=== PATIENT | male | born 1965 | race Caucasian/White ===

== ENCOUNTER → 2017-04-27 10:08 | Outpatient (CLI) | payer MEDICAID ==
[2017-04-27 11:53] LABS: APPEARANCE HAZY (CLEAR); COLOR YELLOW (YELLOW); SPECIFIC GRAVITY 1.025 (1.005-1.020)
[2017-04-27 11:54] LABS: BACTERIA FEW /hpf (NONE SEEN); BILIRUBIN NEGATIVE (NEGATIVE); EPITHELIAL CELLS 0-5 /hpf (0-5); GLUCOSE NEGATIVE (NEGATIVE); KETONE NEGATIVE (NEGATIVE); LEUKOCYTE ESTERASE TRACE (NEGATIVE); MUCUS >1+ /lpf (NONE SEEN); NITRITE NEGATIVE (NEGATIVE); PROTEIN NEGATIVE (NEGATIVE); RED CELLS - URINE 0-5 /hpf (0-5); UROBILINOGEN NORMAL (NORMAL); WHITE CELLS - URINE 0-5 /hpf (0-5)
== END | disposition home or self-care (01) ==
LOC: D.LABREF 10:08
PROVIDERS: Urology
DX: N39.0 Urinary tract infection, site not specified (principal); R31.9 Hematuria, unspecified

== ENCOUNTER → 2017-04-28 13:31 | Outpatient (CLI) | payer MEDICAID | END | disposition home or self-care (01) | LOC: D.CT 13:31 | DX: R31.21 Asymptomatic microscopic hematuria (principal) ==

== ENCOUNTER 2017-06-01 05:32 | Day surgery (SDC) | payer MEDICAID ==
[2017-05-31 14:17] LABS: HEMATOCRIT 41.6 % (42.0-54.0); HEMOGLOBIN 14.3 g/dL (13.5-17.5); MCH 31.6 pg (26.0-34.0); MCHC 34.4 g/dL (31.0-37.0); MEAN PLATELET VOLUME 9.7 fL (7.4-10.4); RBC 4.52 10x6/uL (4.20-6.10); RDW 12.7 % (11.5-14.5); WBC 7.4 10x3/uL (4.8-10.8)
[~2017-06-01] VITALS: Ht 175.3 cm; Wt 95.3 kg
[~2017-06-01 05:32] MED LIST: METOPROLOL TART50 MG PO; PROZAC20 MG PO; ROBAXIN500 MG PO; TRAZODONE HCL50 MG PO
[2017-06-01 07:10] VITALS: BP 109/62; Ht 175.3 cm; Wt 95.3 kg
--- NOTE | 2017-06-01 13:11 | OP ---
PATIENT NAME: MEEK PROTILLO MEDICAL RECORD: [id number] :61 LOCATION:[facility] ADMISSION DATE: SURGEON: JOSEP GAYLE MD DATE OF OPERATION: 06/01/2017 SURGEON: Josep Gayle MD ANESTHESIA: General anesthesia by Dr. Mario. PREOPERATIVE DIAGNOSIS: Microhematuria, elevated PSA 6.0. PROCEDURE: Cystoscopy, transrectal ultrasound and prostate biopsy. FINDINGS: On cystoscopy, obstructive BPH, single ureteral orifices bilaterally. No bladder tumors seen. Some bladder inflammation with glomerulations. On transrectal ultrasound prostate size is 26.5 grams. No hypoechoic areas noted. ESTIMATED BLOOD LOSS: Minimal. CLINICAL HISTORY: This is a 51-year-old male with an elevated PSA of 6.0. He also has microhematuria, which is being investigated. Today, we are going to perform cystoscopy as well as transrectal ultrasound and prostate biopsy. The patient is taking Bactrim at home for prophylaxis. He also taken enema last night. Today, we gave him 2 grams of [employer] sales representative consultant to the OR. DESCRIPTION OF PROCEDURE: The patient was given induction of general anesthesia. He was then placed in the dorsal lithotomy position and prepped and draped. A 17-[place] cystoscope with 30-degree lens was used for visualization. Findings are as outlined above. We then emptied the bladder through the cystoscope and removed the scope. A transrectal ultrasound probe was then introduced and prostate size measurements were obtained. Sextant biopsies were obtained with at least 3 cores from each sextant. At the end of procedure, the patient was awakened and brought to the recovery room. I will go over the results with him next week in the office. TRANSINT:[id number] Voice Confirmation ID: [id number] DOCUMENT ID: [id number] JOSEP GAYLE MD at 1311 CC: [id number] DICTATION DATE: 06/01/17920 TERMINAL MANAGER: 06/01/17 1226 [facility] 06/01/17 [id number] [place] [address]
== END 2017-06-01 10:47 | disposition home or self-care (01) ==
LOC: D.OPS 05:32 → D.PAN 07:45 → D.OPS 08:00 → D.PAN 08:00 → D.OPS 10:47
PROVIDERS: Anesthesiology
DX: R31.29 Other microscopic hematuria (principal); N40.0 Benign prostatic hyperplasia without lower urinary tract symptoms; R97.20 Elevated prostate specific antigen [PSA]; F17.200 Nicotine dependence, unspecified, uncomplicated; I10 Essential (primary) hypertension; Z01.812 Encounter for preprocedural laboratory examination